=== PATIENT | male | born 1975 | race Hispanic/Latino ===

== ENCOUNTER 2017-06-26 16:15 | Inpatient (IN) | payer MEDICAID ==
--- NOTE | 2017-06-26 17:07 | C.PDOC ---
History Of Present Illness Pt was transferred here for psychiatric admission. He was medically cleared at the referring facility. Time Seen by Provider: 06/26/17 16:58 Chief Complaint (Nursing): Psychiatric Evaluation History Per: Patient Onset/Duration Of Symptoms: Days Current Symptoms Are (Timing): Still Present Suicide/Self Injury Attempted (Context): None Modifying Factor(s): Cocaine Severity: Moderate Associated Symptoms: Depression Additional History Per: Prior Records Past Medical History Reviewed: Historical Data, Nursing Documentation, Vital Signs Vital Signs: Last Vital Signs Temp 97.6 F 06/26/17 16:18 Pulse 81 06/26/17 16:18 Resp 18 06/26/17 16:18 BP 120/84 06/26/17 16:18 Pulse Ox 98 06/26/17 16:18 - Medical History PMH: No Chronic Diseases Family History: States: Unknown Family Hx - Social History Hx Alcohol Use: Yes Hx Substance Use: Yes (Cocaine) Review Of Systems Constitutional: Negative for: Fever Cardiovascular: Negative for: Chest Pain Respiratory: Negative for: Shortness of Breath Gastrointestinal: Negative for: Abdominal Pain Musculoskeletal: Negative for: Neck Pain Skin: Negative for: Rash Neurological: Negative for: Weakness Psych: Positive for: Depression, Suicidal ideation Physical Exam - Physical Exam Appears: Non-toxic, No Acute Distress Skin: Normal Color, Warm, Dry, No Rash Head: Atraumatic, Normacephalic Eye(s): bilateral: Normal Inspection, PERRL, EOMI Neck: Normal ROM, Supple Cardiovascular: Rhythm Regular Respiratory: Normal Breath Sounds, No Accessory Muscle Use Gastrointestinal/Abdominal: Soft, No Tenderness Extremity: Normal ROM, No Deformity Neurological/Psych: Oriented x3, Normal Motor, Normal Sensation ED Course And Treatment O2 Sat by Pulse Oximetry: 98 Pulse Ox Interpretation: Normal Disposition - Disposition Disposition: HOSPITALIZED Disposition Time: 17:06 Condition: STABLE - Clinical Impression Clinical Impression: Cocaine abuse, Depression Decision To Admit - Pt Status Changed To: Hospital Disposition Of: Inpatient - Admit Certification Admit to Inpatient:: After my assessment, the patient will require hospitalization for at least two midnights. This is because of the severity of symptoms shown, intensity of services needed, and/or the medical risk in this patient being treated as an outpatient. - InPatient: Physician Admission Certification: I certify that this patient requires 2 or more midnights of care for the following reason:: Psych. - . Bed Request Type: Psychiatry Admitting Physician: Viridiana Fischer Patient Diagnosis: Cocaine abuse, Depression
[2017-06-26] MEDS ORDERED: Buprenorphine Hydrochloride 2 mg SL ONE (19:21)
--- NOTE | 2017-06-26 22:25 | PCM.BM ---
<Elis Torres - Last Filed: 06/26/17 22:22> Treatment Plan Problems - Problems identified on initial assessmt Depression Date Initiated: 06/26/17 Time Initiated: 17:45 Assessment reference: NA Status: Active Substance abuse Date Initiated: 06/26/17 Time Initiated: 17:45 Assessment reference: NA Status: Active Treatment assets and liabiliti Patient Assests: insightful, motivated, good support system, negotiates basic needs, cognitively intact Patient Liabilities: substance abuse (cocaine, seboxone, heroine, paxil and pain killer prescriptions. ), legal issue - Milieu Protocol Maintain good personal hygiene: daily Encourage regular showers, every shift Remind patient to perform daily oral care, every shift Assist patient to perform ADL's Conduct patient checks and document Observation sheet: Q15 minutes Maintain personal safety: every shift Educate patient to report safety concerns to staff, every shift Monitor environment for contraband/sharps Medication safety: Monitor for expected outcome, potential side effects: every shift, Assess barriers to learning: every shift, Assess readiness for medication education: every shift <Viridiana Fischer - Last Filed: 06/27/17 10:48> - Diagnosis (1) Depression Status: Acute Interventions: 06/27/17 10:48 * Assess/adjust medications daily and /or as needed * See patient on an individual basis 7x/week to assess symptoms of depression * Monitor for side effects & effectiveness of medications * (2) Cocaine abuse Status: Acute Interventions: 06/27/17 10:48 * Assess 7x/week regarding severity of withdrawal * Educate regarding risks, benefits, side effects and alternatives of medications * Use Motivational Interviewing for abstinence * Use CBT for relapse prevention * Medication management for withdrawal symptoms * Encourage medication assisted treatment *
--- NOTE | 2017-06-27 09:52 | PCM.PSYCH ---
Initial Psychiatric Evaluation - Initial Psychiatric Evaluation Type of Admission: Voluntary Legal Status: Capacity Chief Complaint (in patient's own words): I was depressed and suicidal.' History of Present Illness and Precipitating Events: This is a 42 year old CM , who is originally from [place], presented to the ED with depressed mood and suicidal ideation without any specific plan. As per the pt he came to see his extended family in [place] but relapsed on cocaine. He reports history of abusing heroin 5-10 bags intranasally , in the past. However, he is getting suboxone 16 mg daily from a pain clinic in [place], both for back pain as well as heroin. He reports depressed mood and feelings of hopelessness and helplessness. He reports poor sleep and poor appetite. He denies any auditory of visual hallucinations or any psychotic symptoms. He denies any withdrawal symptoms. He reports past psychiatric history of "depression" but denies any h/o inpatient psychiatric hospitalizations. He reports h/o 1 detox last year. Pt vaguely reports past SI without any attempts. PMH: Back pain Current Medications: Active Medications Generic Name Dose Route Start Last Admin Trade Name Freq PRN Reason Stop Dose Admin Benztropine Mesylate 2 mg 06/26/17 19:19 Cogentin PO Q6 PRN Extra Pyramidal Symptoms Diphenhydramine HCl 50 mg 06/26/17 19:19 Benadryl PO Q6 PRN Extra Pyramidal Symptoms Haloperidol 5 mg 06/26/17 19:19 Haldol PO Q8 PRN Moderate Agitation Hydroxyzine HCl 25 mg 06/26/17 19:20 Atarax PO Q6 PRN Agitation Paroxetine HCl 20 mg 06/27/17 10:00 06/27/17 09:41 Paxil PO 20 mg DAILY ÁNGELA Administration Pneumococcal Polyvalent Vaccine 0.5 ml 06/29/17 10:00 Pneumovax 23 Vaccine IM 06/29/17 10:01 .ONCE ONE Trazodone HCl 50 mg 06/26/17 22:00 06/26/17 21:35 Desyrel PO 50 mg HS ÁNGELA Administration Past Psychiatric History - Past Psychiatric History Previous Treatment History: Inpatient Pertinent Medical Hx (Current Medical&Sleep Prob, Allergies): Allergies Allergy/AdvReac Type Severity Reaction Status Date / Time No Known Allergies Allergy Unverified 06/26/17 16:22 Paxil 06/26/17 Suboxone. 06/26/17 Review of Systems - Review of Systems All systems: reviewed and no additional remarkable complaints except - Psychiatric Psychiatric: Anxiety, Irritability, Suicidal Ideation Mental Status Examination - Personal Presentation Personal Presentation: Looks stated age - Affect Affect: Constricted, Depressed - Motor Activity Motor Activity: Calm - Reliability in Providing Information Reliability in Providing Information: Good - Speech Speech: Organized - Mood Mood: Depressed, Anxious - Formal Thought Process Formal Thought Process: No Impairment - Obsessions/Compulsions Obsessions: No Compulsions: No - Cognitive Functions Orientation: Person, Place, Situation, Time Sensorium: Alert Attention/Concentration: Attentive Abstract Thinking: [place] Estimate of Intelligence: Below average Judgement: Imparied, as evidence by: Poor judgement, Imparied, as evidence by: Lack of insight into illness - Risk Risk: Suicidal, Diminished functioning - Limitations Limitations: Living alone DSM 5 DX - DSM 5 DSM 5 Diagnosis: Major depressive disorder recurrent severe without psychotic features Opioid use disorder severe on agonist therapy Cocaine use disorder moderate - Recommended/Plan of Treatment Treatment Recommendations and Plan of Treatment: Major depressive disorder recurrent severe without psychotic features -Psychoeducation -Supportive therapy, group therapy, individual therapy -Prozac 20 mg -Neurontin 100 mg by mouth 3 times a day -Trazodone 50 mg by mouth daily at bedtime Opioid use disorder severe on agonist therapy/Back Pain -Psychoeducation -Supportive therapy, individual therapy -Use AL for abstinence -Subutex 8 mg SL BID Cocaine use disorder moderate -Monitor signs and symptoms -Use AL for abstinence - Smoking Cessation Smoking Cessation Initiated: No
[2017-06-27] MEDS: Buprenorphine Hydrochloride 8 mg SL SCH ×2 (11:07→17:20)
[2017-06-28 06:46] VITALS: O2SAT 98
[2017-06-28] MEDS: Buprenorphine Hydrochloride 8 mg SL SCH ×2 (10:11→18:10)
--- NOTE | 2017-06-28 23:02 | PCM.PYCHPN ---
Psychiatric Progress Note - Psychiatric Progress Note Patient seen today, length of contact: 15 min Patient Chief Complaint: I was depressed and suicidal.' Problems Identified/Issues Discussed: Patient seen and evaluated, chart reviewed and discussed with the nurse. He reports depressed mood and feelings of helplessness. Patient remained isolated, confined and withdrawn. Patient reports withdrawal symptoms including headaches, cramps and sweating. Patient is compliant with medications and denies any side effects. Symptoms are improving but need more time to stabilize. Support and psychoeducation given. Medication Change: Yes Medical Record Reviewed: Yes Mental Status Examination - Cognitive Function Orientation: Person, Place, Situation, Time Memory: Intact Attention: WNL Concentration: Poor Association: WNL Fund of Knowledge: Poor - Mood Mood: Depressed, Anxious - Affect Affect: Constricted, Depressed - Speech Speech: Soft - Formal Thought Process Formal Thought Process: No Impairment - Suicidal Ideation Suicidal Ideation: No - Homicidal Ideation Homicidal Ideation: No Goal/Treatment Plan - Goal/Treatment Plan Need for Continued Stay: Severe depression anxiety, Severe functional impairment Progress Toward Problem(s) and Goals/Treatment Plan: Major depressive disorder recurrent severe without psychotic features -Psychoeducation -Supportive therapy, group therapy, individual therapy -Prozac 20 mg -Neurontin 100 mg by mouth 3 times a day -Trazodone 50 mg by mouth daily at bedtime Opioid use disorder severe on agonist therapy/Back Pain -Psychoeducation -Supportive therapy, individual therapy -Use AL for abstinence -Subutex 8 mg SL BID Cocaine use disorder moderate -Monitor signs and symptoms -Use AL for abstinence - Smoking Cessation Smoking Cessation Initiated: No
[2017-06-29] MEDS ORDERED: Pneumococcal 23-Valent Vaccine IM ONE (10:00)
[2017-06-29] MEDS: Buprenorphine Hydrochloride 8 mg SL SCH ×2 (10:16→17:18)
--- NOTE | 2017-06-29 22:26 | PCM.PYCHPN ---
Psychiatric Progress Note - Psychiatric Progress Note Patient seen today, length of contact: 15 min Patient Chief Complaint: I was depressed and suicidal.' Problems Identified/Issues Discussed: Patient seen and evaluated, chart reviewed and discussed with the nurse. He reports depressed mood and feelings of helplessness. Patient remained isolated, confined and withdrawn. Patient reports withdrawal symptoms including headaches, cramps and sweating. Patient is compliant with medications and denies any side effects. Symptoms are improving but need more time to stabilize. Support and psychoeducation given. Medication Change: Yes Medical Record Reviewed: Yes Mental Status Examination - Cognitive Function Orientation: Person, Place, Situation, Time Memory: Intact Attention: WNL Concentration: Poor Association: WNL Fund of Knowledge: Poor - Mood Mood: Depressed, Anxious - Affect Affect: Constricted, Depressed - Speech Speech: Soft - Formal Thought Process Formal Thought Process: No Impairment - Suicidal Ideation Suicidal Ideation: No - Homicidal Ideation Homicidal Ideation: No Goal/Treatment Plan - Goal/Treatment Plan Need for Continued Stay: Severe depression anxiety, Severe functional impairment Progress Toward Problem(s) and Goals/Treatment Plan: Major depressive disorder recurrent severe without psychotic features -Psychoeducation -Supportive therapy, group therapy, individual therapy -Prozac 20 mg -Neurontin 100 mg by mouth 3 times a day -Trazodone 50 mg by mouth daily at bedtime Opioid use disorder severe on agonist therapy/Back Pain -Psychoeducation -Supportive therapy, individual therapy -Use [place] for abstinence -Subutex 8 mg SL BID Cocaine use disorder moderate -Monitor signs and symptoms -Use NJ for abstinence
--- NOTE | 2017-06-30 10:05 | PCM.PYCHPN ---
Psychiatric Progress Note - Psychiatric Progress Note Patient seen today, length of contact: 15 min Patient Chief Complaint: I was depressed and suicidal.' Problems Identified/Issues Discussed: Patient seen and evaluated, chart reviewed and discussed with the nurse. He reports some improvement in his depressed mood and some improvement in thefeelings of helplessness. Patient remained isolated, confined and withdrawn. Patient reports improvement in the withdrawal symptoms. Patient is compliant with medications and denies any side effects. Symptoms are improving but need more time to stabilize. Support and psychoeducation given. Medication Change: Yes (inrease gabapentin) Medical Record Reviewed: Yes Mental Status Examination - Cognitive Function Orientation: Person, Place, Situation, Time Memory: Intact Attention: WNL Concentration: WNL Association: WNL Fund of Knowledge: Poor - Mood Mood: Depressed, Anxious - Affect Affect: Constricted, Depressed - Speech Speech: Soft - Formal Thought Process Formal Thought Process: No Impairment - Suicidal Ideation Suicidal Ideation: No - Homicidal Ideation Homicidal Ideation: No Goal/Treatment Plan - Goal/Treatment Plan Need for Continued Stay: Severe depression anxiety, Severe functional impairment Progress Toward Problem(s) and Goals/Treatment Plan: Major depressive disorder recurrent severe without psychotic features -Psychoeducation -Supportive therapy, group therapy, individual therapy -Paroxetine 20 mg -Neurontin 300 mg by mouth 3 times a day -Trazodone 50 mg by mouth daily at bedtime Opioid use disorder severe on agonist therapy/Back Pain -Psychoeducation -Supportive therapy, individual therapy -Use LA for abstinence -Subutex 8 mg SL daily -Subutex 4 mg SL @ 2pm and Subutex 4 mg @ 6pm Cocaine use disorder moderate -Monitor signs and symptoms -Use LA for abstinence
[2017-06-30] MEDS: Buprenorphine Hydrochloride 8 mg SL SCH ×2 (10:07→18:16)
[2017-07-01] MEDS: Buprenorphine Hydrochloride 8 mg SL SCH (09:17)
[2017-07-01] MEDS: Buprenorphine Hydrochloride 2 mg SL SCH ×2 (15:08→17:29)
--- NOTE | 2017-07-02 00:23 | PCM.PYCHPN ---
Psychiatric Progress Note - Psychiatric Progress Note Patient seen today, length of contact: 15 min Patient Chief Complaint: I would like to change the schedule of suboxone.' Problems Identified/Issues Discussed: Patient seen and evaluated, chart reviewed and discussed with the nurse. He is asking to change the schedule of his suboxone. However, he reports some improvement in his depressed mood and withdrawal symptoms. Patient remained isolated, confined and withdrawn. Patient is compliant with medications and denies any side effects. Symptoms are improving but need more time to stabilize. Support and psychoeducation given. Medication Change: Yes (inrease gabapentin, split suboxone) Medical Record Reviewed: Yes Mental Status Examination - Cognitive Function Orientation: Person, Place, Situation, Time Memory: Intact Attention: WNL Concentration: WNL Association: WNL Fund of Knowledge: Poor - Mood Mood: Depressed, Anxious - Affect Affect: Constricted, Depressed - Speech Speech: Soft - Formal Thought Process Formal Thought Process: No Impairment - Suicidal Ideation Suicidal Ideation: No - Homicidal Ideation Homicidal Ideation: No Goal/Treatment Plan - Goal/Treatment Plan Need for Continued Stay: Severe depression anxiety, Severe functional impairment Progress Toward Problem(s) and Goals/Treatment Plan: Major depressive disorder recurrent severe without psychotic features -Psychoeducation -Supportive therapy, group therapy, individual therapy -Paroxetine 20 mg -Neurontin 300 mg by mouth 3 times a day -Trazodone 50 mg by mouth daily at bedtime Opioid use disorder severe on agonist therapy/Back Pain -Psychoeducation -Supportive therapy, individual therapy -Use CA for abstinence -Subutex 8 mg SL daily -Subutex 4 mg SL @ 2pm and Subutex 4 mg @ 6pm Cocaine use disorder moderate -Monitor signs and symptoms -Use CA for abstinence - Smoking Cessation Smoking Cessation Initiated: No
[2017-07-02] MEDS: Buprenorphine Hydrochloride 8 mg SL SCH (10:17)
[2017-07-02] MEDS: Buprenorphine Hydrochloride 2 mg SL SCH ×2 (13:54→17:10)
[2017-07-02] MEDS: Aritificial Tears (15ml) OU PRN (21:46)
[2017-07-03] MEDS: Buprenorphine Hydrochloride 8 mg SL SCH (09:18)
[2017-07-03] MEDS: Buprenorphine Hydrochloride 2 mg SL SCH ×2 (13:47→17:40)
--- NOTE | 2017-07-03 17:00 | PCM.BM ---
<Cecelia Buchanan - Last Filed: 07/03/17 16:59> Treatment Plan Problems - Problems identified on initial assessmt Depression Date Initiated: 06/26/17 Time Initiated: 17:45 Assessment reference: NA Status: Active Substance abuse Date Initiated: 06/26/17 Time Initiated: 17:45 Assessment reference: NA Status: Active Treatment assets and liabiliti Patient Assests: insightful, motivated, good support system, negotiates basic needs, cognitively intact Patient Liabilities: substance abuse (cocaine, seboxone, heroine, paxil and pain killer prescriptions. ), legal issue - Milieu Protocol Maintain good personal hygiene: daily Encourage regular showers, every shift Remind patient to perform daily oral care, every shift Assist patient to perform ADL's Conduct patient checks and document Observation sheet: Q15 minutes Maintain personal safety: every shift Educate patient to report safety concerns to staff, every shift Monitor environment for contraband/sharps Medication safety: Monitor for expected outcome, potential side effects: every shift, Assess barriers to learning: every shift, Assess readiness for medication education: every shift Milieu Narrative: Major depressive disorder recurrent severe without psychotic features -Psychoeducation -Supportive therapy, group therapy, individual therapy -Paroxetine 20 mg -Neurontin 300 mg by mouth 3 times a day -Trazodone 50 mg by mouth daily at bedtime Opioid use disorder severe on agonist therapy/Back Pain -Psychoeducation -Supportive therapy, individual therapy -Use ME for abstinence -Subutex 8 mg SL daily -Subutex 4 mg SL @ 2pm and Subutex 4 mg @ 6pm Cocaine use disorder moderate -Monitor signs and symptoms -Use ME for abstinence Discharge/Continuing Care - Treatment Team Participation Patient/Family/SO Statement: Major depressive disorder recurrent severe without psychotic features -Psychoeducation -Supportive therapy, group therapy, individual therapy -Paroxetine 20 mg -Neurontin 300 mg by mouth 3 times a day -Trazodone 50 mg by mouth daily at bedtime Opioid use disorder severe on agonist therapy/Back Pain -Psychoeducation -Supportive therapy, individual therapy -Use ME for abstinence -Subutex 8 mg SL daily -Subutex 4 mg SL @ 2pm and Subutex 4 mg @ 6pm Cocaine use disorder moderate -Monitor signs and symptoms -Use ME for abstinence Treatment Plan Review - Problem Depression Time Initiated: 17:45 Substance abuse Time Initiated: 17:45 - Discharge / Continuing Care Discharge to:: Home, With Family Behavioral Health Services: Intensive Outpatient Health Needs: Follow up care/test, Medications/Rx, Alcohol/Drug treatment <Linda Rosas - Last Filed: 07/04/17 10:34> Treatment Plan Review - Problem Depression Date Initiated: 07/04/17 Time Initiated: 08:00 Progress toward outcomes: resolved Substance abuse Date Initiated: 07/04/17 Time Initiated: 08:00 Progress toward outcomes: resolved
[2017-07-03] MEDS: Aritificial Tears (15ml) OU PRN (20:27)
--- NOTE | 2017-07-03 20:45 | PCM.PYCHPN ---
Psychiatric Progress Note - Psychiatric Progress Note Patient seen today, length of contact: 15 min Patient Chief Complaint: "OK" Problems Identified/Issues Discussed: The pt is seen, chart reviewed, case discussed with staff. Support given, CBT and MT used briefly No new symptoms reported, improving slowly and needs more time No SEs from medications, risks discussed. After care discussed Medication Change: No Medical Record Reviewed: Yes Mental Status Examination - Cognitive Function Orientation: Person, Place, Situation, Time Memory: Intact Attention: WNL Concentration: WNL Association: WNL Fund of Knowledge: Poor - Mood Mood: Depressed, Anxious - Affect Affect: Constricted, Depressed - Speech Speech: Soft - Formal Thought Process Formal Thought Process: No Impairment - Suicidal Ideation Suicidal Ideation: No - Homicidal Ideation Homicidal Ideation: No Goal/Treatment Plan - Goal/Treatment Plan Need for Continued Stay: Severe depression anxiety, Severe functional impairment Progress Toward Problem(s) and Goals/Treatment Plan: Continue medications Support and psychoeducation daily Attend groups and activities daily After care planning by [facility]
--- NOTE | 2017-07-04 00:29 | PCM.PYCHPN ---
Psychiatric Progress Note - Psychiatric Progress Note Patient seen today, length of contact: 15 min Patient Chief Complaint: "Better" Problems Identified/Issues Discussed: The pt is seen, chart reviewed, case discussed with staff. The pt is compliant with medications and reports no side-effects. Symptoms are improving but needs more time to stabilize. After care discussed, support and psychoeducation given. Medication Change: No Medical Record Reviewed: Yes Mental Status Examination - Cognitive Function Orientation: Person, Place, Situation, Time Memory: Intact Attention: WNL Concentration: WNL Association: WNL Fund of Knowledge: Poor - Mood Mood: Depressed, Anxious - Affect Affect: Constricted, Depressed - Speech Speech: Soft - Formal Thought Process Formal Thought Process: No Impairment - Suicidal Ideation Suicidal Ideation: No - Homicidal Ideation Homicidal Ideation: No Goal/Treatment Plan - Goal/Treatment Plan Need for Continued Stay: Severe depression anxiety, Severe functional impairment Progress Toward Problem(s) and Goals/Treatment Plan: Continue medications Support and psychoeducation daily Attend groups and activities daily After care planning by [facility]II
[2017-07-04 09:03] VITALS: BP 113/77; PULSE 81; RESP 19; TEMP 97.4
[2017-07-04] MEDS: Buprenorphine Hydrochloride 8 mg SL SCH (09:08)
--- NOTE | 2017-07-04 10:42 | PCM.PYCHDC ---
Mental Status Examination - Mental Status Examination Orientation: Person, Place, Situation, Time Memory: Intact Mood: Neutral Affect: Constricted Speech: Soft Attention: WNL Concentration: WNL Fund of Knowledge: WNL Formal Thought Process: No Impairment Suicidal Ideation: No Current Homicidal Ideation?: No Discharge Summary - Discharge Note Reason for Hospitalization: This is a 42 year old CM , who is originally from [place], presented to the ED with depressed mood and suicidal ideation without any specific plan. As per the pt he came to see his extended family in [place] but relapsed on cocaine. He reports history of abusing heroin 5-10 bags intranasally , in the past. However, he is getting suboxone 16 mg daily from a pain clinic in [place], both for back pain as well as heroin. He reports depressed mood and feelings of hopelessness and helplessness. He reports poor sleep and poor appetite. He denies any auditory of visual hallucinations or any psychotic symptoms. He denies any withdrawal symptoms. He reports past psychiatric history of "depression" but denies any h/o inpatient psychiatric hospitalizations. He reports h/o 1 detox last year. Pt vaguely reports past SI without any attempts. Consultations:: List each consultation separately and include: 1. Reason for request. 2. Findings. 3. Follow-up Summary of Hospital Course include:: 1. Description of specific treatment plan utilized for patients during their course of treatmen. 2. Summarize the time- course for resolution of acute symptoms and/or regressed behaviors. 3. Describe issues identified and worked on during hospitalization. 4. Describe medication utilized. 5. Describe medical problems identified and treated. 6. Reassessment of suicide risk Summary of Hospital Course: During the course of his stay, patient (pt) started progressively improving and he no longer remained irritable, depressed, and suicidal. His mood and anxiety symptoms were improved and he started attending groups and meetings and started socializing. Patient denied any feelings of hopelessness, helplessness, and worthlessness, denied any problem with the sleep or appetite, denied suicidal ideation or homicidal ideation. Pt denied any auditory or visual hallucinations. He denied any withdrawal symptoms. Some changes were made in his current medications and patient was discharged on following medications. He tolerated these medications very well and denied any side effects. He was discharged back to the [place], to follow up with the [facility] located at [address] [place] [id number]. - Diagnosis (1) Depression Status: Acute (2) Cocaine abuse Status: Acute - Final Diagnosis (DSM 5) Condition upon Discharge: STABLE DSM 5: Major depressive disorder recurrent severe without psychotic features Opioid use disorder severe on agonist therapy/Back Pain Cocaine use disorder moderate Disposition: HOME/ ROUTINE Follow-up Treatment Plan: Education: Pt was educated and counseled about the risks and benefits of taking and not taking medications. Pt was educated and counseled about the risks of drinking and abusing drugs. Pt was educated and counseled to go to the ER or call 911 if pt develop suicidal ideation or homicidal ideation, worsening of symptoms or severe side effects of the meds. Prescriptions/Medication Reconciliation: Buprenorphine Hydrochloride [Subutex] 8 mg SL BID #4 tab Gabapentin [Neurontin] 300 mg PO TID #90 cap PARoxetine [Paxil] 20 mg PO DAILY #30 tab traZODone [Desyrel] 50 mg PO HS #30 tab - Smoking Cessation Smoking Cessation Medication prescribed: No - Antipsychotic Medications Pt discharged on 2 or more routine antipsychotic medications: No
== END 2017-07-04 11:10 | disposition home or self-care (01) | DRG 430 ==
LOC: C.ER 16:15 → C.5E 17:08
PROVIDERS: ADMIT Psychiatry & Neurology Psychiatry; ATTEND Psychiatry & Neurology Psychiatry
PROC: GZ3ZZZZ Medication Management (ICD-10-PCS; principal; 2017-06-26)
PROC: GZHZZZZ Group Psychotherapy (ICD-10-PCS; 2017-06-26)
PROC: GZ56ZZZ Individual Psychotherapy, Supportive (ICD-10-PCS; 2017-06-26)
PROC: HZ59ZZZ Individual Psychotherapy for Substance Abuse Treatment, Supportive (ICD-10-PCS; 2017-06-26)
PROC: HZ89ZZZ Medication Management for Substance Abuse Treatment, Other Replacement Medication (ICD-10-PCS; 2017-06-26)
PROC: HZ2ZZZZ Detoxification Services for Substance Abuse Treatment (ICD-10-PCS; 2017-06-26)
DX: F33.2 Major depressive disorder, recurrent severe without psychotic features (principal); F11.20 Opioid dependence, uncomplicated; F14.20 Cocaine dependence, uncomplicated; R45.851 Suicidal ideations; M54.9 Dorsalgia, unspecified; F17.210 Nicotine dependence, cigarettes, uncomplicated